=== PATIENT | female | born 1940 | race Caucasian/White ===

== ENCOUNTER 2021-06-06 07:56 | Emergency (ER) | payer MEDICARE ==
[~2021-06-06] VITALS: Ht 167.6 cm; Wt 79.4 kg
[2021-06-06] MEDS ORDERED: ONDANSETRON HCL INJ 2MG/ML 2ML 2 MG/ML VIAL IV ONE (08:15)
[2021-06-06] MEDS ORDERED: SODIUM CHLORIDE 0.9% 50ML 50 ML ONE (08:21)
[2021-06-06] MEDS ORDERED: CASIRIVIMAB/IMDEVIMAB 10 ML in SODIUM CHLORIDE 0.9% 100 ML IV ONE (08:30)
== END 2021-06-06 09:45 | disposition home or self-care (01) ==
LOC: ER 08:11
DX: U07.1 COVID-19 (principal); I25.10 Atherosclerotic heart disease of native coronary artery without angina pectoris; E78.5 Hyperlipidemia, unspecified; F32.9 Major depressive disorder, single episode, unspecified; Z86.73 Personal history of transient ischemic attack (TIA), and cerebral infarction without residual deficits
CPT/HCPCS: 99284; J2405